=== PATIENT | female | born 1960 | race Hispanic/Latino ===

== ENCOUNTER 2017-11-27 10:00 | Outpatient (RCR) | payer OTHER | END 2017-11-28 | LOC: PT 10:00 | PROVIDERS: ATTEND Internal Medicine | DX: I69.851 Hemiplegia and hemiparesis following other cerebrovascular disease affecting right dominant side (principal) | CPT/HCPCS: 97110; 97162; 97530; G8978; G8979 ==

== ENCOUNTER 2017-12-09 16:00 | Outpatient (RCR) | payer OTHER | END 2017-12-28 | LOC: PT 16:00 | PROVIDERS: ATTEND Internal Medicine | DX: I69.351 Hemiplegia and hemiparesis following cerebral infarction affecting right dominant side (principal); R26.2 Difficulty in walking, not elsewhere classified; M62.81 Muscle weakness (generalized); R29.6 Repeated falls ==

== ENCOUNTER → 2018-01-28 | Outpatient (RCR) | payer OTHER | LOC: PT 01-11 14:59 → OT 01-15 10:00 → PT 01-18 13:52 → OT 01-26 15:00 → PT 14:00 | PROVIDERS: ATTEND Orthopaedic Surgery | DX: M25.511 Pain in right shoulder (principal); M75.01 Adhesive capsulitis of right shoulder; G89.29 Other chronic pain | CPT/HCPCS: 97010 ×2; 97110 ×9; 97165; G8978; G8979 ==

== ENCOUNTER 2018-02-02 15:00 | Outpatient (RCR) | payer OTHER | END 2018-02-27 | LOC: PT 15:00 | PROVIDERS: ATTEND Internal Medicine | DX: I69.351 Hemiplegia and hemiparesis following cerebral infarction affecting right dominant side (principal); R29.6 Repeated falls; R26.2 Difficulty in walking, not elsewhere classified; M62.81 Muscle weakness (generalized) | CPT/HCPCS: 97010; 97110 ×3; G8978; G8979 ==